=== PATIENT | male | born 1965 | race Caucasian/White ===

== ENCOUNTER 2024-01-02 10:25 | Outpatient (CLI) | payer OTHER ==
--- NOTE | 2024-01-02 11:08 | Sleep Patient Instructions ---
Sleep Center Visit Summary - Patient Visit Information Reason for Visit: Initial consultation - Patient Instructions Additional Instructions: You will continue with CPAP therapy with pressure set at 8-13 cmH2O. A supply prescription will be updated with your DME. We encourage you to continue to try to lose weight. Please follow up with the sleep care office in 1 year. - Clinic Information Contact: [facility] [address] [place] [address] [email or web address] T: [phone]
--- NOTE | 2024-01-02 11:14 | SLEEP CARE CONSULTATION ---
Information from patient questionnaire entered by Dayana Garcia. I have reviewed and concur with the information entered by Dayana Garcia. This document represents the service I personally performed and the decisions made by me, Estephanie Ferrera ARNP. History of Present Illness Service Date and Time: 01/02/2024 1025 Reason for Visit: New patient, Previously diagnosed sleep apnea, sleep apnea on CPAP therapy Chief Complaint: reports: Other (Update for supplies) Date of Onset: 15 years Usual bedtime: 11 PM Time it takes to fall asleep: 10 minutes Snores at night: Yes Observed to quit breathing while asleep: Yes Sleeps alone due to snoring: Yes Number of times waking at night: Once Reasons for waking at night: reports: Choking, Bathroom Toss, Turn, or Twitch while sleeping: Yes Recalls having dreams: No Usually gets out of bed at: 6 AM Feels refreshed in the morning: Yes Morning headache: No Sleepy or fatigued during the day: No Ever fallen asleep while driving: No Takes day naps: Yes Dreams during day naps: Yes Prior sleep studies: Yes Year and Where: [facility] 2010, [facility] 2019 Additional HPI information: SHARI SANDY was previously diagnosed to have severe, AHI 37.5, obstructive sleep apnea-hypopnea syndrome as seen in study dated 08/27/2019 through [facility] at [facility] in [place] and comes in today to establish care for CPAP therapy. - Parasomnia Symptoms Ever been unable to move upon waking from sleep: No Walks in sleep: No Talks in sleep: No Ever acted out dreams in sleep: No Ever felt weak in the knees when startled or emotional: No Bothered by creepy, crawly, restless sensations in legs: No Problems with memory or concentration: No CPAP Compliance Data - Data Reviewed with Patient Average duration of nightly device use: 5 hours 38 minutes Compliance rate %: 93 (87/90 days used) Current pressure setting (cmH2O): 8-13 Average residual AHI: 0.2 Central apnea: 0 Obstructive apnea: 0 Hypopnea: 0.1 Compliance data discussion: He has a [employer]Med Airsense 10 that was set up 09/21/2019. He gets his supplies from [employer]. He is using a Dreamwear nasal cushion mask. He changes the cushion about every 2 weeks. Subjective Missed days of use due to: reports: travel Patient concerns: denies: aerophagia, mask discomfort, air blowing in eyes, mask leak noise, condensation in mask/hose, nasal congestion, dry mouth, nose, throat, epistaxis Observed to snore while using device: No Current pressure setting perceived as: comfortable On therapy, patient: reports: sleeping better, awakening more refreshed, being more awake and alert during the day, more rested overall. 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 Patient is and lives in [place]. Have you smoked in the past 12 months: No Alcohol use: No Caffeine use: Yes Caffeine amount and frequency: 1 can once per week Family History Family history of sleep disordered breathing: Yes Family Hx Sleep Apnea: Father: Snoring, Sleep apnea - Untreated, Sibling: Snoring, Sleep apnea - Treated Allergies and Home Medications Known drug allergies: No Drug allergies reviewed: Yes Home medication list reviewed: Yes (as listed) Allergy and home medication list: Allergies No Known Drug Allergies Allergy (Verified 01/02/24 10:56) Home Medications Lisinopril See Rx Instructions .ROUTE .COMPLEX 01/02/24 [History] Vitamin D3 See Rx Instructions .ROUTE .COMPLEX 01/02/24 [History] atenoloL See Rx Instructions .ROUTE .COMPLEX 01/02/24 [History] Review of Systems Weight gain over past 5 years: 20 + Cardiovascular: reports: high blood pressure Gastrointestinal: denies: heartburn Neurological: denies: headaches Ear/Nose/Throat: reports: wisdom teeth removed Immunologic: reports: other (Hay fever) Physical Exam Vital signs obtained and entered by: Estephanie Taylor NP Blood Pressure: 129/82 Cuff size: regular (left arm) Heart Rate: 50 O2 Saturation: 98 Height: 5 ft 8 in Weight: 188 lb 12.8 oz Body Mass Index: 28.7 BMI Classification: Overweight Heart: regular rate and rhythm Lungs: clear bilaterally Impression and Plan 1. Obstructive Sleep Apnea-Hypopnea Syndrome, severe, with good treatment compliance and good apnea control. On CPAP therapy, the patient has better sleep quality and is more rested overall. He has significant improvement of his sleep apnea and is satisfied with current CPAP therapy. He intends to use his CPAP long term care phlebotomist. He has no issues or concerns with using his CPAP. I will update his supply prescription and see him in follow up next year. Patient's apnea severity and rationale for treatment to reduce apnea, improve sleep quality and reduce cardiovascular and cerebrovascular events was reviewed. I also reviewed the benefit of consistent device use of CPAP for hypertension. 2. Overweight, unspecified. Currently patients BMI is 28.7. Obesity increases the risk of apnea, CPAP pressure requirements and overall health risks especially cardiovascular and diabetes. Thus patient is advised to lose weight. * Continue auto CPAP pressure at 8-13 cmH2O * Update supply prescription * Notify me if snoring with mask or feeling that the pressure is too much or too little * Attempt to lose weight * Call this office if any problems using CPAP * Return for follow up in 12 months, or sooner if concerns arise Counseling Topics: Spare mask, Weight loss health impact Prescriptions: Device supplies Follow up with Sleep Care in: 1 year Visit Type: In Office Time Spent with Patient (minutes): 32 Provider Statement: I spent 100% of the Face to Face Visit with the patient with greater than 50% spent counseling the patient and coordination of care.
[2024-01-02 11:15] VITALS: BP 129/82; O2SAT 98
== END 2024-01-02 10:26 | disposition home or self-care (01) ==
LOC: SC 10:25
PROVIDERS: ATTEND Nurse Practitioner Family
DX: G47.33 Obstructive sleep apnea (adult) (pediatric) (principal); E66.3 Overweight; Z68.28 Body mass index [BMI] 28.0-28.9, adult
CPT/HCPCS: 99203; 99212